=== PATIENT | female | born 1965 ===

== ENCOUNTER 2021-10-19 06:06 | Day surgery (SDC) | payer OTHER ==
[~2021-10-19 06:06] MED LIST: ADULT LOW DOSE81 M1 PO; ANASTROZOLE1 MG PO; PROZAC10 MG PO; SYNTHROID50 MCG PO; ZESTRIL10 M1 PO
[2021-10-19] MEDS ORDERED: ULTRACET PO (11:30)
== END 2021-10-19 14:45 | disposition home or self-care (01) ==
LOC: CIR.AMB 06:06
PROVIDERS: ATTEND Surgery
DX: C50.019 Malignant neoplasm of nipple and areola, unspecified female breast (principal); Z20.822 Contact with and (suspected) exposure to COVID-19; Z86.16 Personal history of COVID-19; E03.9 Hypothyroidism, unspecified